=== PATIENT | female | born 1950 | race Caucasian/White ===

== ENCOUNTER 2018-05-03 00:17 | Inpatient (IN) | payer MEDICARE, MEDICAID ==
[~2018-05-03] VITALS: Ht 157.5 cm; Wt 81.1 kg
[~2018-05-03 00:17] MED LIST: ACAI BERRY500 MG PO; ADULT LOW DOSE81 MG PO; ATIVAN0.5 MG; DIFLUCAN150 MG PO; DOXYCYCLINE; GLUCOPHAGE; NORCO 5-325 TA1 EACH PO; NYSTATIN; NYSTATIN 100,0015 GM TP; OMEGA-31000 MG PO; PHENERGAN; PRINIVIL; ZANTAC; ZOFRAN4 MG PO
[2018-05-03 00:24] VITALS: BP 146/93
[2018-05-03] MEDS ORDERED: KLOR-CON 1010 MEQ PO (00:34)
[2018-05-03] MEDS ORDERED: DIURETIC (00:34)
[2018-05-03 01:02] LABS: ABSOLUTE BASOPHILS 0.1 thou/uL (0.0-0.2); ABSOLUTE EOSINOPHILS 0.1 thou/uL (0.0-0.7); ABSOLUTE LYMPHOCYTES 1.4 thou/uL (0.8-5.3); ABSOLUTE MONOCYTES 0.7 thou/uL (0.0-1.2); ABSOLUTE NEUTROPHILS 5.2 thou/uL (1.6-8.1); BASOPHILS 0.8 %; EOSINOPHILS 1.7 %; HEMATOCRIT 36.6 % (37.0-47.0); HEMOGLOBIN 11.7 gm/dL (12.0-15.0); LYMPHOCYTES 18.7 %; MCH 26.5 pg (26.0-34.0); MCHC 32.1 g/dL (28.0-37.0); MCV 82.6 fL (80.0-100.0); MONOCYTES 8.7 %; MPV 8.6 fl. (7.2-11.1); NUCLEATED RBCS 0 /100WBC; PLATELET COUNT* 224 thou/uL (150-400); POLYS 70.1 %; RBC 4.43 mil/uL (4.20-5.00); RDW-CV 17.4 % (10.5-14.5); WBC 7.5 thou/uL (4.0-11.0)
[2018-05-03 01:15] LABS: INR 1.1; PROTIME 11.2 Seconds (9.20-11.50)
[2018-05-03 01:47] LABS: URINE BILIRUBIN NEGATIVE (Negative); URINE BLOOD NEGATIVE (Negative); URINE CLARITY CLEAR; URINE COLOR YELLOW; URINE GLUCOSE-RANDOM NEGATIVE (Negative); URINE KETONES NEGATIVE (Negative); URINE LEUKOCYTES-REFLEX NEGATIVE (Negative); URINE NITRITE-REFLEX NEGATIVE (Negative); URINE PROTEIN NEGATIVE (Negative); URINE SPECIFIC GRAVITY <= 1.005 (1.005-1.030); URINE UROBILINOGEN 0.2 E.U./dl (0.2-1.0)
[2018-05-03 01:53] LABS: ANION GAP 9 mmol/L (7-16); BUN 11 mg/dL (7-18); CALCIUM 8.2 mg/dL (8.5-10.1); CHLORIDE 102 mmol/L (98-107); CO2 23 mmol/L (21-32); GLUCOSE 117 mg/dL (70-99); POTASSIUM 4.3 mmol/L (3.5-5.1); SODIUM 134 mmol/L (136-145)
[2018-05-03 02:04] LABS: ALBUMIN 3.2 g/dL (3.4-5.0); ALKALINE PHOSPHATASE 81 U/L (46-116); NT-PRO BRAIN NAT PEPTIDE 5982 pg/mL (<300); SGOT 17 U/L (15-37); SGPT 16 U/L (30-65); TOTAL BILIRUBIN 0.5 mg/dL (<0.1-1.0); TOTAL PROTEIN 7.3 g/dL (6.4-8.2); TROPONIN-I LEVEL <0.06 ng/mL (<0.06)
[2018-05-03 03:18] VITALS: BP 133/56
[2018-05-03 09:00] VITALS: BP 122/70
--- NOTE | 2018-05-03 10:57 | EKG ---
[place] [address] ELECTROCARDIOGRAM REPORT Name: VALERIA COMERYN Brayan Room: [address] ADM [place] .R.#: [id number] Admission: 05/03/18 Attend Phys: Geo Moseley MD Discharge: Date of : 50 Report #: [id number] THIS REPORT FOR: //name// [facility] ED Test Date: 2018-05-03 Test Time: 01:09:42 Pat Name: LEVON COMER Department: Room: [facility] Gender: F Rack Loader: MR : 1950 Requested By: Angela Butler Order Number: [id number] MD: Peter Cordoba Measurements Intervals [place] Rate: 103 P: 67 HI: 158 QRS: 22 QRSD: 105 T: 112 QT: 365 QTc: 478 Interpretive Statements Sinus tachycardia Probable left atrial enlargement LVH with secondary repolarization abnormality Anterior Q waves, possibly due to LVH Compared to ECG 02/13/2008 09:09:10 Left ventricular hypertrophy now present Sinus bradycardia no longer present Electronically Signed On 05-03-2018 10:56:58 CDT by Peter Cordoba [email or web address] <ELECTRONICALLY SIGNED> By: Peter Cordoba MD, [facility] 05/03/18 [phone] Peter Cordoba MD, [facility] /EPI
[2018-05-03 10:59] LABS: INFLUENZA A ANTIGEN None Detected (None Detect); INFLUENZA B ANTIGEN None Detected (None Detect)
[2018-05-03 11:46] VITALS: BP 128/59
--- NOTE | 2018-05-03 13:43 | NUR ---
Pt is A&O. Resides at home with her sister, stated that she has lived here for about 5 months. Pt reports being independent with ADLS. Pt stated that she had o2 at home, but stated that everything was sent back. Pt previously used [facility]. Pt stated that if she needs it at dc, it would need to be set up again because she doesn't have all of the supplies. Hx of HH, but does not remember the name of the agency. No hx of SNF. Pt has a cane that she uses for mobility. Goal is to return home. Following
[2018-05-03 15:20] VITALS: BP 125/68
--- NOTE | 2018-05-03 16:38 | NUR ---
PATIENT REMAINS ALERT AND ORIENTED. DENIES PAIN. O2 2L. NON PRODUCTIVE COUGH. URINE SENT FOR STREP LEGIONELLA. FLU SWAB NEGATIVE. AMBULATES WITH STANDBY ASSIST. IV SALINE LOCK RIGHT HAND. SOLUMEDROL GIVEN. BREATHING TREATMENTS PER RESPIRATORY. UP TO CHAIR THIS AFTERNOON. SCD'S FOR HS. FAMILY VISITED THIS AFTERNOON. CALL LIGHT WITHIN REACH. WILL CONTINUE TO MONITOR.
--- NOTE | 2018-05-03 16:47 | NUR ---
HOURLY ROUNDING COMPLETED
[2018-05-04] VITALS: BP 122/75
[2018-05-04 04:00] VITALS: BP 127/74
--- NOTE | 2018-05-04 04:54 | NUR ---
ASSUMED CARE OF PATIENT AT 1930. SHE COMPLAINED OF ANXIETY AND WAS PRESCRIBED ATIVAN. ANXIETY WAS RELIEVED SHORTLY AFTER. HOURLY ROUNDING WAS PROVIDED AND PATIENT APPEARD COMFORTABLE THROUGHOUT NIGHT. CALL LIGHT REMAINED WITHIN REACH.
[2018-05-04 05:42] LABS: HEMATOCRIT 32.8 % (37.0-47.0); HEMOGLOBIN 10.5 gm/dL (12.0-15.0); MCH 26.9 pg (26.0-34.0); MCHC 32.1 g/dL (28.0-37.0); MCV 83.6 fL (80.0-100.0); MPV 8.6 fl. (7.2-11.1); RBC 3.93 mil/uL (4.20-5.00); RDW-CV 17.3 % (10.5-14.5); WBC 9.8 thou/uL (4.0-11.0)
[2018-05-04 06:11] LABS: CALCIUM 8.6 mg/dL (8.5-10.1); CREATININE 1.2 mg/dL (0.6-1.3); MAGNESIUM 2.2 mg/dL (1.8-2.4); POTASSIUM 4.5 mmol/L (3.5-5.1)
--- NOTE | 2018-05-04 07:45 | NUR ---
ASSUMED CARE OF PT ASSESSED AND DOCUMENTED. PT IS A&O WITH NO C/O PAIN. PT IS ON CARDIAC MONITER TRACING SR HR 73. VSS WNL. PT IS AFEBRILE. PT HAS SOA ON EXHERTION AND WHEEZING NOTED IN ALL LOBES. SHE IS ON 2L OF O2. PT WAS HIGHLY AGITATED ABOUT HAVING A CT WITH CONTRAST STATEING IT ALMOST KILLED HER WHEN SHE HAD ONE BEFORE. SHE REFUSES TO HAVE THE CONTRAST. EDUCATION GIVEN. BED IN LOW POSITION CALL LIGHT IS IN REACH. WM.
[2018-05-04 08:00] VITALS: BP 128/87
[2018-05-04 12:00] VITALS: BP 131/62
--- NOTE | 2018-05-04 12:37 | NUR ---
CM provided Pt with PENITENTIARY options that accept [place] Medicaid, Pt stated that she does not want to turn over her income, so is not open to PENITENTIARY at this time. Sister in room, sister would like Pt to go to [facility]. Following.
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
[2018-05-04 16:00] VITALS: BP 133/61
--- NOTE | 2018-05-04 17:39 | NUR ---
PT HAS RESTED IN HER ROOM AND BEEN ON HER COMPUTER. SHE ASKED THAT NO ONE GO IN HER ROOM WITH OUT THE NURSE. PT IS ANXIOUS AND WANTS TO REFUSE CARE. PT NEEDS EXPLNATIONS BEFORE EACH TEST PROCEDURE AND HANDS ON CARE. SHE MAY STILL REFUSE. EDUCATION GIVEN ON DEMAND. HOURLY ROUNDING COMPLETE.
[2018-05-04 20:00] VITALS: BP 105/40
[2018-05-05] VITALS: BP 105/42
[2018-05-05 04:00] VITALS: BP 123/50
--- NOTE | 2018-05-05 04:52 | NUR ---
ASSUMED PT CARE AT 1930. NURSING ASSESSMENT COMPLETED AT START OF SHIFT. [employer] SOFTWARE CONSULTANT IN PLACE, TRACING SINUS RHYTH WITH PVCS. PT CALM AND COOPERATIVE THIS SHIFT. HOURLY ROUNDING COMPLETED. FALL PRECAUTIONS IN PLACE. CALL LIGHT WITHIN REACH.
[2018-05-05 05:02] LABS: HEMATOCRIT 32.3 % (37.0-47.0); HEMOGLOBIN 10.5 gm/dL (12.0-15.0); MCH 26.7 pg (26.0-34.0); MCHC 32.3 g/dL (28.0-37.0); MCV 82.5 fL (80.0-100.0); MPV 8.6 fl. (7.2-11.1); RBC 3.92 mil/uL (4.20-5.00); RDW-CV 17.3 % (10.5-14.5); WBC 12.6 thou/uL (4.0-11.0)
[2018-05-05 05:29] LABS: CALCIUM 9.3 mg/dL (8.5-10.1); CREATININE 1.1 mg/dL (0.6-1.3); MAGNESIUM 2.4 mg/dL (1.8-2.4); POTASSIUM 4.4 mmol/L (3.5-5.1)
[2018-05-05 07:38] VITALS: BP 127/54
[2018-05-05] MEDS ORDERED: CEFDINIR300 MG PO (09:44)
[2018-05-05] MEDS ORDERED: ZITHROMAX250 MG PO (09:44)
[2018-05-05] MEDS ORDERED: VENTOLIN HFA 1818 GM INH (09:44)
[2018-05-05] MEDS ORDERED: PREDNISONE 10 M10 MG PO (09:44)
--- NOTE | 2018-05-05 10:16 | NUR ---
SPOKE TO [facility] WITH [facility] TO INFORM OF THE REFERRAL FOR HH, AND FAXED PATIENT'S FACESHETT, H&P, AND D/C ORDERS. [facility] TO CONTACT PATIENT TO SETUP VISIT. CM WILL REMAIN AVIALABLE TO ASSIST AND FOLLOW NEEDED.
[2018-05-05 10:18] VITALS: BP 127/54
--- NOTE | 2018-05-05 11:42 | NUR ---
Ex ox ordered. Pt refusing to ambulate with RT, stating "my foot hurts." Pt is 92% at rest on RA, unsure of what she would be with activity, as she is refusing to ambulate. Pt discharging to home today. Sister in room and will transport home.
[2018-05-05 12:00] VITALS: BP 111/60
[2018-05-05 12:17] VITALS: BP 127/54
[2018-05-05] MEDS ORDERED: ALBUTEROL2.5 MG/31 INH (13:00)
--- NOTE | 2018-05-05 13:00 | NUR ---
PT WITH COMPLETE DC ORDER. REVIEWED DC INSTRUCTIONS AND MEDICATION LIST WITH PT/FAMILY, PRESENT AT BS. ANSWERED QUESTIONS TO PT/FAMILY SATISFACTION. SCRIPTS GIVEN. CONTACTED DR. CHAVEZ TO OBTAIN ORDER FOR ALBUTEROL BY NEBULIZER AT PT'S INSISTANCE. ORDER OBTAINED AND CALLED IN TO [facility]. IV AND TELE MONITOR DC'D. TELE MONITOR PLACED IN ROOM WALL POCKET. PT IN POSSESSION OF ALL PERSONAL BELONGINGS. PT TO BE TRANSPORTED HOME VIA CAR AND FAMILY MEMBERS DOCUMENTED.
== END 2018-05-05 13:54 | disposition home health service (06) | DRG 193 ==
LOC: M.ERS 00:17 → M.2W 02:09 → M.TBA-ER 02:09 → M.2W 03:05
PROVIDERS: Emergency Medicine; Internal Medicine; ADMIT Internal Medicine
DX: J15.9 Unspecified bacterial pneumonia (principal); J96.21 Acute and chronic respiratory failure with hypoxia; I50.32 Chronic diastolic (congestive) heart failure; R65.10 Systemic inflammatory response syndrome (SIRS) of non-infectious origin without acute organ dysfunction; J44.0 Chronic obstructive pulmonary disease with (acute) lower respiratory infection; J18.0 Bronchopneumonia, unspecified organism; I25.10 Atherosclerotic heart disease of native coronary artery without angina pectoris; Z86.73 Personal history of transient ischemic attack (TIA), and cerebral infarction without residual deficits; Z90.710 Acquired absence of both cervix and uterus; Z85.42 Personal history of malignant neoplasm of other parts of uterus; Z87.81 Personal history of (healed) traumatic fracture; Z88.6 Allergy status to analgesic agent; Z88.0 Allergy status to penicillin; Z88.2 Allergy status to sulfonamides; Z88.8 Allergy status to other drugs, medicaments and biological substances; Q07.00 Arnold-Chiari syndrome without spina bifida or hydrocephalus; Z82.49 Family history of ischemic heart disease and other diseases of the circulatory system; Z87.891 Personal history of nicotine dependence; Z79.82 Long term (current) use of aspirin; Z79.899 Other long term (current) drug therapy

== ENCOUNTER → 2018-08-25 | Outpatient (CLI) | payer MEDICARE, MEDICAID ==
[~2018-08-25] MED LIST changes: +ALBUTEROL2.5 MG/31 INH; +CEFDINIR300 MG PO; +DIURETIC; +KLOR-CON 1010 MEQ PO; +PREDNISONE 10 M10 MG PO; +VENTOLIN HFA 1818 GM INH; +ZITHROMAX250 MG PO
== END ==
LOC: M.RAD 15:42
DX: I51.7 Cardiomegaly (principal); J92.9 Pleural plaque without asbestos; J18.1 Lobar pneumonia, unspecified organism

== ENCOUNTER → 2018-09-13 | Outpatient (CLI) | payer MEDICARE, MEDICAID ==
--- NOTE | 2018-09-13 16:40 | 2DMMODE ---
[place] [address] 2 D/M-MODE ECHOCARDIOGRAM Name: LOREDialloLEVON J Room: [facility]#: [id number] Admission: 09/13/18 Attend Phys: Haseeb Gutierrez, Discharge: Date of : 50 Date of Service: 09/13/18 [facility] Report #: [id number] THIS REPORT FOR: //name// APPROVED REPORT Study performed: 09/13/2018 15:36:59 EXAM: Comprehensive 2D, Doppler, and color-flow Echocardiogram Patient Location: Out-Patient Status: routine BSA: 1.76 HR: 96 bpm Other Information Study Quality: Good Indications CAD 2D Dimensions IVSd: 10.02 (7-11mm) LVOT Diam: 19.47 (18-24mm) LVDd: 54.27 mm PWd: 10.16 (7-11mm) Ascending Ao: 25.85 (22-36mm) LVDs: 44.08 (25-40mm) Aortic Root: 26.42 mm Volumes Left Atrial Volume (Systole) LA ESV Index: 25.40 mL/m2 Aortic Valve AoV Peak Roverto.: 1.38 m/s AO Peak Gr.: 7.58 mmHg LVOT Max P.24 mmHg AO Mean Gr.: 4.08 mmHg LVOT Mean P.50 mmHg LVOT Max V: 0.56 m/s AO V2 VTI: 20.54 cm LVOT Mean V: 0.32 m/s JAYDEN (VTI): 1.14 cm2 LVOT V1 VTI: 7.86 cm Mitral Valve E/A Ratio: 1.71 MV Decel. Time: 149.18 ms MV E Max Roverto.: 1.20 m/s MV PHT: 43.26 ms MVA (PHT): 5.09 [place] [address] 2 D/M-MODE ECHOCARDIOGRAM Name: LEVON COMER Room: [facility]#: [id number] Admission: 09/13/18 Attend Phys: Haseeb Gutierrez, Discharge: Date of : 50 Date of Service: 09/13/18 1640 Report #: [id number] TDI E/Lateral E': 24.00 E/Medial E': 24.00 Medial E' Roverto.: 0.05 m/s Lateral E' Roverto.: 0.05 m/s Pulmonary Valve PV Peak Roverto.: 0.96 m/s PV Peak Gr.: 3.70 mmHg Tricuspid Valve RAP Estimate: 5.00 mmHg TR Peak Gr.: 43.49 mmHg RVSP: 48.49 mmHg PA Pressure: 48.49 mmHg Left Ventricle Left ventricle is mildly dilated. There is global hypokinesis of the left ventricle. There is normal left ventricular wall thickness. Left ventricular systolic function is severely decreased. LVEF is 20-25%. The left ventricular diastolic function is normal. Right Ventricle The right ventricle is normal size. The right ventricular systolic function is normal. Atria The left atrium size is normal. The right atrium size is normal. Aortic Valve The aortic valve is normal in structure. No aortic regurgitation is present. There is no aortic valvular stenosis. Mitral Valve The mitral valve is normal in structure. Moderate to severe mitral regurgitation No evidence of mitral valve stenosis. Tricuspid Valve The tricuspid valve is normal in structure. Moderate tricuspid regurgitation. estimated pa pressure 45 mm Hg Pulmonic Valve The pulmonary valve is normal in structure. There [place] [address] 2 D/M-MODE ECHOCARDIOGRAM Name: LEVON COMER Room: [facility]#: [id number] Admission: 09/13/18 Attend Phys: Haseeb Gutierrez, Discharge: Date of : 50 Date of Service: 09/13/18 [facility] Report #: [id number] regurgitation. Great Vessels The aortic root is normal in size. IVC is normal in size and collapses >50% with inspiration. Pericardium There is no pericardial effusion. <Conclusion> LVEF is 20-25%. There is global hypokinesis of the left ventricle. Moderate to severe mitral regurgitation Moderate tricuspid regurgitation. estimated pa pressure 45 mm Hg <ELECTRONICALLY SIGNED> By: Peter Cordoba MD, FACC 09/13/18 1640 1640 1640 Peter Cordoba MD, FACC /INF
== END ==
LOC: M.CRD 15:00
DX: I08.1 Rheumatic disorders of both mitral and tricuspid valves (principal); I25.10 Atherosclerotic heart disease of native coronary artery without angina pectoris

== ENCOUNTER → 2018-10-07 | Outpatient (CLI) | payer MEDICARE, MEDICAID ==
[~2018-10-07] MED LIST changes: +LEVAQUIN 750 M750 MG PO; +PREDNISONE50 MG PO
--- NOTE | 2018-10-07 15:35 | CARDNUC ---
[place] [address] CARDIAC NUCLEAR IMAGING REPORT Name: NAHOMILEVON GABE Room: [facility]#: [id number] Admission: 10/07/18 Attend Phys: Haseeb Gutierrez, Discharge: Date of : 50 Date of Service: 10/07/18 1535 Report #: [id number] THIS REPORT FOR: //name// APPROVED REPORT Imaging Protocol: Rest Tc-99m/Stress Tc-99m 1 day Study performed: 10/07/2018 08:15:00 Indication: ischemic cardiomyopathy Patient Location: Out-Patient Stress Tech: Shahida Morrison Stress Nurse: Sabra Begum RN NM Tech:TOMMY Pulido Ht: 5 ft 2 in Wt: 165 lbs BSA: 1.76 m2 BMI: 30.17 Medical History Medical History: cad, pvd, copd, chf, cva Medications: asa Allergies: ibuprofen, penicillin, morphine, statins Cardiac Risk Factors: age, pvd, family hx Exercise History: Sedentary Resting Data Rest SPECT myocardial perfusion imaging was performed in supine position 30 minutes following the intravenous injection of 11.2 mCi of Tc-99m Sestamibi. Time of rest injection: 849 Date: 10/07/2018 Time of rest imagin The images were gated to evaluate regional wall motion and calculate left ventricular ejection fraction. Administration Route: IV Administration Site: Right Hand Pharmacologic Stress Pharmacologic stress test was performed by injecting Regadenoson 0.4 mg IV push over 10-15 seconds immediately followed by the intravenous injection of 31.2 mCi of Tc-99m Sestamibi. Time of stress injection: 1010 Time of stress imagin Administration Route: IV Administration Site: Right Hand Gated Stress SPECT was performed 40 [place] [address] CARDIAC NUCLEAR IMAGING REPORT Name: LEVON COMER Room: [facility]#: [id number] Admission: 10/07/18 Attend Phys: Haseeb Gutierrez, Discharge: Date of : 50 Date of Service: 10/07/18 1535 Report #: [id number] The images were gated to evaluate regional wall motion and calculate left ventricular ejection fraction. Stress only was performed in the Supine position. Stress Test Details Stress Test: Pharmacologic stress testing performed using 0.4 mg of regadenoson per 5 mL given IV over 10 seconds. Reason for pharmacologic stress test: physical limitation. HR Max Heart Rate (APMHR): 153 bpm Resting HR: 98 bpm Target HR (85% APMHR): 130 bpm Max HR Achieved: 111 bpm % of APMHR: 72 Recovery HR: 110 bpm BP Resting BP: 126/84 mmHg Max BP: 138/87 mmHg Recovery BP: 120/86 mmHg ECG Resting ECG: Sinus Rhythm Stress ECG: Sinus Rhythm ST Change: None Arrhythmia: None Recovery ECG: Sinus Rhythm Recovery ST Change: None Recovery Arrhythmia: None Clinical Reason for Termination: Completed protocol The patient tolerated Lexiscan infusion without significant symptoms. Nurse Comments pt tolerated well Stress ECG Conclusion The baseline 12-lead EKG shows sinus rhythm without significant ST segment abnormality. EKGs obtained during and post Lexiscan infusion show sinus rhythm and sinus tachycardia with no significant ST segment changes when compared baseline. There were no stress-induced arrhythmias. Study Quality Study: Good Artifact: [place] [address] CARDIAC NUCLEAR IMAGING REPORT Name: LEVON COMER Room: [facility]#: [id number] Admission: 10/07/18 Attend Phys: Haseeb Gutierrez, Discharge: Date of : 50 Date of Service: 10/07/18 1535 Report #: [id number] Study Data At rest, the left ventricular ejection fraction was 14%.. Post stress, the left ventricular ejection was 15%.. TID = 0.97. The left ventricle is dilated. Perfusion There is a large in size severe intensity fixed defect involving the basal to apical inferior and inferolateral wall. There is a small in size moderate to severe intensity defect involving the distal anteroseptal wall. No reversible defects are identified. Wall Motion The left ventricle is dilated. There is severe global hypokinesis. There is akinesis of the septum. There is akinesis of the basal to mid inferior and inferolateral wall. Nuclear Conclusion ECG Findings: negative for ischemia Clinical Findings: negative for ischemia Nuclear Findings: negative for ischemia Exercise Capacity: not assessed Left Ventricular Function: abnormal Myocardial perfusion images show fixed defects consistent with prior infarct. There were no reversible defects to suggest ongoing ischemia. The left ventricle is dilated. Left ventricular systolic function is severely decreased. This is a high risk study based on severe left ventricular systolic dysfunction consistent with nonischemic cardiomyopathy. <Conclusion> The baseline 12-lead EKG shows sinus rhythm without significant ST segment abnormality. EKGs obtained during and post Lexiscan infusion show sinus rhythm and sinus tachycardia with no significant ST segment changes when compared baseline. There were no stress-induced arrhythmias. <ELECTRONICALLY SIGNED> By: Haseeb Gutierrez MD, FACC 10/07/18 1535 1535 1535 Haseeb Gutierrez MD, FACC /INF
== END ==
LOC: M.NUC 08:16
DX: I25.10 Atherosclerotic heart disease of native coronary artery without angina pectoris (principal); I25.5 Ischemic cardiomyopathy; I73.9 Peripheral vascular disease, unspecified; I50.9 Heart failure, unspecified; Z88.8 Allergy status to other drugs, medicaments and biological substances; Z88.0 Allergy status to penicillin; Z88.5 Allergy status to narcotic agent

== ENCOUNTER 2018-10-08 10:07 | Emergency (ER) | payer MEDICARE, MEDICAID ==
[~2018-10-08] VITALS: Ht 160 cm; Wt 71.2 kg
[~2018-10-08 10:07] MED LIST changes: -LEVAQUIN 750 M750 MG PO; -PREDNISONE50 MG PO
[2018-10-08 10:38] LABS: URINE BILIRUBIN NEGATIVE (Negative); URINE BLOOD NEGATIVE (Negative); URINE CLARITY CLEAR; URINE COLOR YELLOW; URINE GLUCOSE-RANDOM NEGATIVE (Negative); URINE KETONES NEGATIVE (Negative); URINE LEUKOCYTES-REFLEX NEGATIVE (Negative); URINE NITRITE-REFLEX NEGATIVE (Negative); URINE PROTEIN NEGATIVE (Negative); URINE UROBILINOGEN 0.2 E.U./dl (0.2-1.0)
[2018-10-08 10:57] LABS: ABSOLUTE EOSINOPHILS 0.1 thou/uL (0.0-0.7); ABSOLUTE MONOCYTES 0.5 thou/uL (0.0-1.2); ABSOLUTE NEUTROPHILS 3.9 thou/uL (1.6-8.1); BASOPHILS 0.6 %; EOSINOPHILS 1.3 %; HEMATOCRIT 36.1 % (37.0-47.0); HEMOGLOBIN 11.6 gm/dL (12.0-15.0); LYMPHOCYTES 18.6 %; MCH 26.8 pg (26.0-34.0); MCHC 32.3 g/dL (28.0-37.0); MCV 83.1 fL (80.0-100.0); MONOCYTES 9.4 %; MPV 8.5 fl. (7.2-11.1); NUCLEATED RBCS 0 /100WBC; PLATELET COUNT* 182 thou/uL (150-400); POLYS 70.1 %; RBC 4.34 mil/uL (4.20-5.00); RDW-CV 15.8 % (10.5-14.5); WBC 5.5 thou/uL (4.0-11.0)
[2018-10-08 11:00] LABS: INFLUENZA A ANTIGEN None Detected (None Detect); INFLUENZA B ANTIGEN None Detected (None Detect)
[2018-10-08 11:10] LABS: ALBUMIN 3.7 g/dL (3.4-5.0); CREATININE 1.3 mg/dL (0.6-1.3); POTASSIUM 4.4 mmol/L (3.5-5.1); TOTAL BILIRUBIN 0.8 mg/dL (<0.1-1.0); TOTAL PROTEIN 7.5 g/dL (6.4-8.2)
[2018-10-08] MEDS ORDERED: PREDNISONE50 MG PO (11:32)
[2018-10-08] MEDS ORDERED: LEVAQUIN 750 M750 MG PO (11:32)
[2018-10-08 12:04] VITALS: BP 141/83
--- NOTE | 2018-10-08 15:46 | EKG ---
[place] [address] ELECTROCARDIOGRAM REPORT Name: LEVON COMER Room: [facility]#: [id number] Admission: 10/08/18 Attend Phys: Discharge: 10/08/18 Date of : 50 Report #: [id number] THIS REPORT FOR: //name// [facility] ED Test Date: 2018-10-08 Test Time: 11:55:09 Pat Name: LEVON COMER Department: Room: Gender: F Unit Assembler: Brayan NAJERA : 1950 Requested By: Jose Luis Bower Order Number: [id number] MD: Peter Cordoba Measurements Intervals [place] Rate: 92 P: 73 AL: 159 QRS: 8 QRSD: 106 T: 107 QT: 392 QTc: 485 Interpretive Statements Sinus rhythm Left ventricular hypertrophy Nonspecific T abnormalities, lateral leads Compared to ECG 05/03/2018 01:09:42 Sinus tachycardia no longer present Electronically Signed On 10-08-2018 15:46:11 EDGE DYER by Peter Cordoba [email or web address] <ELECTRONICALLY SIGNED> By: Peter Cordoba MD, [facility] 10/08/18 1546 1155 1155 Peter Cordoba MD, [facility] /EPI
== END 2018-10-08 12:05 | disposition home or self-care (01) ==
LOC: M.ERS 10:07
PROVIDERS: Nurse Practitioner Family
DX: B34.9 Viral infection, unspecified (principal); R05 Cough; R11.2 Nausea with vomiting, unspecified; Z90.710 Acquired absence of both cervix and uterus; J44.9 Chronic obstructive pulmonary disease, unspecified; Z88.0 Allergy status to penicillin; Z88.2 Allergy status to sulfonamides; Z88.5 Allergy status to narcotic agent; Z88.6 Allergy status to analgesic agent; Z88.8 Allergy status to other drugs, medicaments and biological substances

== ENCOUNTER 2018-10-19 12:07 | Inpatient (IN) | payer MEDICARE, MEDICAID ==
[~2018-10-19] VITALS: Ht 162.6 cm; Wt 75.8 kg
[~2018-10-19 12:07] MED LIST changes: -DIURETIC; +LASIX 20 MG TAB20 MG PO; +LEVAQUIN 750 M750 MG PO; +PREDNISONE50 MG PO
[2018-10-19 12:19] VITALS: BP 125/84
[2018-10-19 12:57] LABS: HEMATOCRIT 34.2 % (37.0-47.0); HEMOGLOBIN 11.1 gm/dL (12.0-15.0); MCH 26.6 pg (26.0-34.0); MCHC 32.4 g/dL (28.0-37.0); MCV 81.9 fL (80.0-100.0); NUCLEATED RBCS 0 /100WBC; PLATELET COUNT* 179 thou/uL (150-400); RBC 4.18 mil/uL (4.20-5.00); RDW-CV 16.2 % (10.5-14.5); WBC 7.6 thou/uL (4.0-11.0)
[2018-10-19 13:01] LABS: INFLUENZA A ANTIGEN None Detected (None Detect)
[2018-10-19 13:06] LABS: APTT 29.4 Seconds (25.0-31.3); INR 1.1; PROTIME 11.5 Seconds (9.20-11.50)
[2018-10-19 13:13] LABS: CALCIUM 8.2 mg/dL (8.5-10.1); CREATININE 1.1 mg/dL (0.6-1.3); POTASSIUM 4.6 mmol/L (3.5-5.1); TROPONIN-I LEVEL 0.13 ng/mL (<0.06)
[2018-10-19 13:15] LABS: ALBUMIN 3.1 g/dL (3.4-5.0); TOTAL BILIRUBIN 1.1 mg/dL (<0.1-1.0); TOTAL PROTEIN 6.8 g/dL (6.4-8.2)
[2018-10-19 13:25] LABS: ABSOLUTE EOSINOPHILS 0.1 thou/uL (0.0-0.7); ABSOLUTE LYMPHOCYTES 0.9 thou/uL (0.8-5.3); ABSOLUTE MONOCYTES 0.7 thou/uL (0.0-1.2); ABSOLUTE NEUTROPHILS 5.9 thou/uL (1.6-8.1); PLATELET ESTIMATE ADEQUATE
[2018-10-19 13:26] LABS: ANISOCYTOSIS 1+; LARGE PLATELETS RARE; POIKILOCYTOSIS 1+
[2018-10-19 15:25] VITALS: BP 130/79
[2018-10-19 16:30] VITALS: BP 113/68
--- NOTE | 2018-10-19 16:51 | EKG ---
[place] [address] ELECTROCARDIOGRAM REPORT Name: LUCYLEVON ALBERTO GABE Room: [address] ADM [place] .R.#: [id number] Admission: 10/19/18 Attend Phys: Piter Alvarez MD Discharge: Date of : 50 Report #: [id number] THIS REPORT FOR: //name// [facility] Test Date: 2018-10-19 Test Time: 12:21:01 Pat Name: LEVON COMER Department: Room: [facility] Gender: F Residential Property Manager: HOLLY BAIG : 1950 Requested By: Leobardo Lugo Order Number: [id number] MD: Haseeb Gutierrez Measurements Intervals [place] Rate: 100 P: 56 AL: 135 QRS: 13 QRSD: 99 T: 121 QT: 351 QTc: 453 Interpretive Statements Sinus tachycardia Ventricular premature complex Probable left atrial enlargement LVH with secondary repolarization abnormality Artifact in lead(s) I,aVR,aVL,V3,V4,V5 Compared to ECG 10/08/2018 11:55:09 Ventricular premature complex(es) now present Early repolarization now present Sinus rhythm no longer present T-wave abnormality no longer present Electronically Signed On 10-19-2018 16:51:19 CDT by Haseeb Gutierrez [email or web address] <ELECTRONICALLY SIGNED> By: Haseeb Gutierrez MD, [facility] 10/19/18 1651 122 122 Haseeb Gutierrez MD, FAC /EPI
[2018-10-19] MEDS ORDERED: ATIVAN0.5 MG PO (16:52)
[2018-10-19 20:30] VITALS: BP 95/53
[2018-10-20] VITALS: BP 90/57
[2018-10-20 04:00] VITALS: BP 89/56
[2018-10-20 05:29] LABS: HEMATOCRIT 35.3 % (37.0-47.0); HEMOGLOBIN 11.3 gm/dL (12.0-15.0); MCH 26.7 pg (26.0-34.0); MCV 83.4 fL (80.0-100.0); MPV 9.2 fl. (7.2-11.1); RBC 4.23 mil/uL (4.20-5.00); RDW-CV 16.2 % (10.5-14.5); WBC 3.9 thou/uL (4.0-11.0)
[2018-10-20 06:00] LABS: CALCIUM 8.3 mg/dL (8.5-10.1); CREATININE 1.3 mg/dL (0.6-1.3); MAGNESIUM 2.5 mg/dL (1.8-2.4); POTASSIUM 3.7 mmol/L (3.5-5.1)
[2018-10-20 08:30] VITALS: BP 99/53
[2018-10-20 12:00] VITALS: BP 66/23; BP 92/41
[2018-10-20 16:00] VITALS: BP 98/65
[2018-10-20 19:30] VITALS: BP 109/67
[2018-10-21] VITALS: BP 104/50
[2018-10-21 04:00] VITALS: BP 95/58
[2018-10-21 04:51] LABS: HEMATOCRIT 33.3 % (37.0-47.0); HEMOGLOBIN 10.7 gm/dL (12.0-15.0); MCH 26.7 pg (26.0-34.0); MCHC 32.3 g/dL (28.0-37.0); MCV 82.7 fL (80.0-100.0); RBC 4.02 mil/uL (4.20-5.00); RDW-CV 16.1 % (10.5-14.5); WBC 10.6 thou/uL (4.0-11.0)
[2018-10-21 05:05] LABS: CALCIUM 8.2 mg/dL (8.5-10.1); CREATININE 1.2 mg/dL (0.6-1.3); MAGNESIUM 2.4 mg/dL (1.8-2.4); POTASSIUM 4.3 mmol/L (3.5-5.1)
[2018-10-21 08:00] VITALS: BP 110/65
[2018-10-21 11:24] VITALS: BP 106/61
[2018-10-21 16:10] VITALS: BP 115/68
--- NOTE | 2018-10-21 16:54 | CON ---
[address] [address] CONSULTATION Name: NAHOMILEVON BERNAL Room: [address] IN .R.#: [id number] Admission: 10/19/18 Attend Phys: Piter Alvarez MD Discharge: Date of : 50 Report #: [id number] THIS REPORT FOR: //name// CC: Jarad Alvarez DATE OF SERVICE: 10/19/2018 CARDIOLOGY CONSULTATION INDICATION: Acute exacerbation of chronic ischemic cardiomyopathy and heart failure. HISTORY OF PRESENT ILLNESS: The patient is a very pleasant 67-year-old white female who is well known to myself. She has a history of an ischemic cardiomyopathy with an ejection fraction approximately 20-25%. Recent stress test shows evidence of extensive regions of infarct, but no reversible defects to suggest ongoing ischemia. The patient was admitted to the hospital with increasing shortness of breath and dyspnea. She reports a 15 pound weight gain. She has orthopnea. She is not having chest pain. She has increased lower extremity swelling as well. PAST MEDICAL HISTORY: 1. Coronary artery disease. 2. Ischemic cardiomyopathy with ejection fraction of 20-25%. 3. Familial hyperlipidemia. 4. Essential hypertension. 5. History of CVA. 6. Chronic systolic heart failure. 7. COPD. 8. Current pneumonia/influenza. 9. Arnold-Chiari malformation. 10. Left foot fracture remotely. PAST SURGICAL HISTORY: 1. 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 2. Coronary artery bypass grafting, 3 vessels remotely. 3. Left compartment syndrome post bypass surgery, status post surgery for this. 4. Hysterectomy for uterine cancer remotely. ALLERGIES: CODEINE, IBUPROFEN, MORPHINE, PENICILLIN, STATINS, SULFA. HOME MEDICATIONS: Proventil inhaler q. 6 hours p.r.n., aspirin 81 mg daily, Lasix 20 mg p.o. daily, Ativan 0.5 mg q. 6 hours p.r.n. anxiety, potassium chloride 20 mEq [place] [address] CONSULTATION Name: NAHOMILEVON GABE Room: [address]#: [id number] Admission: 10/19/18 Attend Phys: Piter Alvarez MD Discharge: Date of : 50 Report #: [id number] FAMILY HISTORY: Positive for heart disease. SOCIAL HISTORY: The patient quit smoking many years ago. She does not drink alcohol. REVIEW OF SYSTEMS: Positive for cough, shortness of breath, orthopnea. Otherwise, unremarkable. PHYSICAL EXAMINATION: VITAL SIGNS: Blood pressure 130/79, pulse 94. GENERAL: This is a petite elderly female, in no distress. Mood and affect appropriate. HEENT: Extraocular muscles intact. Mucous membranes are moist. NECK: Shows jugular venous distention without carotid bruit. CHEST: Reveals diminished breath sounds with basilar rales. CARDIOVASCULAR: Reveals regular rhythm without gallop or murmur. ABDOMEN: Reveals protuberant abdomen, soft and nontender. EXTREMITIES: Shows 2+ edema to the mid thighs bilaterally. SKIN: Warm and dry. LABORATORY DATA: Reviewed. Sodium 136, potassium 4.6, chloride 104, bicarbonate 24, BUN 12, creatinine 1.1, serum glucose 105. LFTs within normal limits. Troponin 0.13 and 0.10. NT-proBNP 18,317. White blood cell count 7.6, hemoglobin 11.1, platelet count 179,000. Chest x-ray shows small bilateral pleural effusions and cardiomegaly. IMPRESSION AND RECOMMENDATIONS: 1. Acute on chronic systolic heart failure. The patient has been admitted for diuresis. 2. Ischemic cardiomyopathy with ejection fraction of 20-25%. Continue home medications. The patient is intolerant to many medications recommended for congestive heart failure. She has deferred treatment with beta blockers and LE inhibitors. 3. Hyperlipidemia. The patient is intolerant to STATIN AGENTS and has deferred any treatment for her hyperlipidemia. 4. Coronary artery disease, presently stable. She does not have any symptoms to suggest angina. Continue aspirin daily. <ELECTRONICALLY SIGNED> By: Haseeb Gutierrez MD, FACC 10/21/18 1654 1629 2044Micrafael Gutierrez MD, FACC /nt
[2018-10-21 19:25] VITALS: BP 102/65
[2018-10-22] VITALS: BP 110/59
[2018-10-22 04:00] VITALS: BP 97/60
[2018-10-22 05:05] LABS: CALCIUM 8.2 mg/dL (8.5-10.1); CREATININE 1.4 mg/dL (0.6-1.3)
[2018-10-22 09:30] VITALS: BP 92/50
[2018-10-22] MEDS ORDERED: TAMIFLU30 MG PO (11:33)
[2018-10-22] MEDS ORDERED: LASIX 20 MG TAB20 MG PO (11:33)
[2018-10-22 11:54] VITALS: BP 100/60
== END 2018-10-22 15:30 | disposition home health service (06) | DRG 871 ==
LOC: M.ERS 12:07 → M.2W 14:36 → M.TBA-ER 14:36 → M.2W 15:52
PROVIDERS: Family Medicine; Internal Medicine Cardiovascular Disease; ADMIT Internal Medicine
DX: A41.89 Other specified sepsis (principal); I50.23 Acute on chronic systolic (congestive) heart failure; J96.01 Acute respiratory failure with hypoxia; I13.0 Hypertensive heart and chronic kidney disease with heart failure and stage 1 through stage 4 chronic kidney disease, or unspecified chronic kidney disease; J44.0 Chronic obstructive pulmonary disease with (acute) lower respiratory infection; J44.1 Chronic obstructive pulmonary disease with (acute) exacerbation; J20.8 Acute bronchitis due to other specified organisms; I25.5 Ischemic cardiomyopathy; E78.5 Hyperlipidemia, unspecified; J11.1 Influenza due to unidentified influenza virus with other respiratory manifestations; I25.10 Atherosclerotic heart disease of native coronary artery without angina pectoris; N18.2 Chronic kidney disease, stage 2 (mild); Z79.82 Long term (current) use of aspirin; Z79.899 Other long term (current) drug therapy; Z88.5 Allergy status to narcotic agent; Z88.2 Allergy status to sulfonamides; Z88.6 Allergy status to analgesic agent; Z88.8 Allergy status to other drugs, medicaments and biological substances; Z88.0 Allergy status to penicillin; Z90.710 Acquired absence of both cervix and uterus; Z79.2 Long term (current) use of antibiotics; Z86.73 Personal history of transient ischemic attack (TIA), and cerebral infarction without residual deficits; Z95.1 Presence of aortocoronary bypass graft; Z82.49 Family history of ischemic heart disease and other diseases of the circulatory system; Z87.891 Personal history of nicotine dependence

== ENCOUNTER 2018-11-01 06:46 | Inpatient (IN) | payer MEDICARE, MEDICAID ==
[~2018-11-01] VITALS: Ht 160 cm; Wt 76.7 kg
[~2018-11-01 06:46] MED LIST changes: +ATIVAN0.5 MG PO; +TAMIFLU30 MG PO
[2018-11-01 06:47] VITALS: BP 147/89
[2018-11-01 07:14] LABS: HEMATOCRIT 36.3 % (37.0-47.0); HEMOGLOBIN 11.4 gm/dL (12.0-15.0); MCH 25.7 pg (26.0-34.0); MCHC 31.3 g/dL (28.0-37.0); MCV 82.2 fL (80.0-100.0); MPV 8.4 fl. (7.2-11.1); NUCLEATED RBCS 0 /100WBC; PLATELET COUNT* 316 thou/uL (150-400); RBC 4.42 mil/uL (4.20-5.00); RDW-CV 16.5 % (10.5-14.5); WBC 8.3 thou/uL (4.0-11.0)
[2018-11-01 07:25] LABS: INR 1.2
[2018-11-01 07:31] LABS: INFLUENZA A ANTIGEN None Detected (None Detect); INFLUENZA B ANTIGEN None DetectedA (None Detect)
[2018-11-01 07:33] LABS: ANION GAP 12 mmol/L (7-16); BUN 11 mg/dL (7-18); CALCIUM 8.4 mg/dL (8.5-10.1); CHLORIDE 100 mmol/L (98-107); CO2 23 mmol/L (21-32); CREATININE 1.4 mg/dL (0.6-1.3); GLUCOSE 130 mg/dL (70-99); SODIUM 135 mmol/L (136-145); TROPONIN-I LEVEL <0.06 ng/mL (<0.06)
[2018-11-01 07:35] LABS: ALBUMIN 3.2 g/dL (3.4-5.0); ALKALINE PHOSPHATASE 85 U/L (46-116); LIPASE 174 U/L (73-393); NT-PRO BRAIN NAT PEPTIDE 17235 pg/mL (<300); SGOT 27 U/L (15-37); SGPT 40 U/L (30-65); TOTAL BILIRUBIN 1.2 mg/dL (<0.1-1.0); TOTAL PROTEIN 7.3 g/dL (6.4-8.2)
[2018-11-01 08:20] LABS: ABSOLUTE LYMPHOCYTES 0.7 thou/uL (0.8-5.3); ABSOLUTE MONOCYTES 0.3 thou/uL (0.0-1.2); ABSOLUTE NEUTROPHILS 7.3 thou/uL (1.6-8.1); PLATELET ESTIMATE ADEQUATE
--- NOTE | 2018-11-01 10:04 | EKG ---
[place] [address] ELECTROCARDIOGRAM REPORT Name: LEVON COMER Room: [facility]9 ADM IN .R.#: [id number] Admission: 11/01/18 Attend Phys: Augusto Ash Discharge: Date of : 50 Report #: [id number] THIS REPORT FOR: //name// [facility] ED Test Date: 2018-11-01 Test Time: 07:06:08 Pat Name: LEVON COMER Department: Room: [facility] Gender: F Enrobing Machine Corder: WILL : 1950 Requested By: Leobardo Lugo Order Number: [id number] MD: Peter Cordoba Measurements Intervals [place] Rate: 126 P: 60 AL: 134 QRS: 11 QRSD: 107 T: 152 QT: 315 QTc: 457 Interpretive Statements Sinus tachycardia Probable left atrial enlargement LVH with secondary repolarization abnormality Anterior ST elevation, probably due to LVH Baseline wander in lead(s) V2 Compared to ECG 10/19/2018 12:21:01 Ventricular premature complex(es) no longer present Electronically Signed On 11-01-2018 10:04:41 CDT by Peter Cordoba [email or web address] <ELECTRONICALLY SIGNED> By: Peter Cordoba MD, FACC 11/01/18 1004 5 0706 Peter Cordoba MD, FAC /EPI
[2018-11-01 15:04] VITALS: BP 147/89
[2018-11-01 17:11] VITALS: BP 147/89
[2018-11-01 20:00] VITALS: BP 96/56; BP 98/58
[2018-11-01 23:08] LABS: URINE BILIRUBIN NEGATIVE (Negative); URINE BLOOD NEGATIVE (Negative); URINE CLARITY CLEAR; URINE COLOR YELLOW; URINE GLUCOSE-RANDOM NEGATIVE (Negative); URINE KETONES NEGATIVE (Negative); URINE LEUKOCYTES-REFLEX NEGATIVE (Negative); URINE NITRITE-REFLEX NEGATIVE (Negative); URINE PROTEIN NEGATIVE (Negative); URINE UROBILINOGEN 0.2 E.U./dl (0.2-1.0)
[2018-11-01 23:15] LABS: AMP/METHAMP Negative (Negative); BARBITURATES Negative (Negative); BENZODIAZEPINES Negative (Negative); COCAINE Negative (Negative); METHADONE Negative (Negative); OPIATES POSITIVE (Negative); PCP Negative (Negative); THC Negative (Negative)
[2018-11-02] VITALS (9 sets, daily range): BP systolic 92–140; BP diastolic 60–89
[2018-11-02 05:51] LABS: CREATININE 1.3 mg/dL (0.6-1.3); POTASSIUM 4.4 mmol/L (3.5-5.1)
[2018-11-02] MEDS ORDERED: LEVAQUIN 750 M750 MG PO (13:59)
--- NOTE | 2018-11-02 14:17 | CON ---
[facility] [address] [place] [address] CONSULTATION Name: NAHOMILEVON GABE Room: [address] IN .R.#: [id number] Admission: 11/01/18 Attend Phys: Augusto Ash Discharge: Date of : 50 Report #: [id number] THIS REPORT FOR: //name// CC: Jarad Cason DATE OF SERVICE: 11/01/2018 HISTORY OF PRESENT ILLNESS: The patient is a 68-year-old single white female who I was asked to see in the hospital today after she complained of nausea and vomiting. The history is obtained from the patient as well as some old records. The patient states that she had 5-vessel coronary artery bypass surgery in 1988 in the [facility]. She has been followed recently by my partner, Dr. Gutierrez. Of note is that she actually underwent an echocardiogram last month that showed ejection fraction of only 25% with moderate severe mitral regurgitation. Nuclear stress test last month, which showed a severe fixed defect involving the base of the inferior wall as well as the anteroseptal wall, but no reversible defects. This was consistent with fixed defect. There is severe left ventricular dysfunction. The patient just saw Dr. Gutierrez recently. She was actually just discharged a couple of weeks ago after an episode of bronchitis. She was brought to the Emergency Room today by ambulance complaining of fever, cough, sore throat, nausea and vomiting. Cardiology consultation is requested. She does have occasional chest pain, but no syncope. PAST MEDICAL HISTORY: She had previous back surgery. She has had previous surgery on the leg after compartment syndrome during her bypass surgery, vein graft harvesting. She has a history of hypertension, hyperlipidemia. She has also had a history of a brain surgery to repair Chiari malformation. She had a shunt placed for meningitis. She has had a previous stroke during her brain surgery, now has left hemiparesis. MEDICATIONS: Consist of nebulizer, aspirin. ALLERGIES: SHE HAS INTOLERANCE TO CODEINE, MORPHINE, PENICILLIN, SIMVASTATIN. SOCIAL HISTORY: She lives with a sister in [place], [place]. Quit smoking years ago. Occasionally drinks alcohol. REVIEW OF SYSTEMS: No history of asthma, peptic ulcer disease, liver disease, kidney disease. She had uterine cancer in the past. She has had a stroke. PHYSICAL EXAMINATION: GENERAL: Revealed an elderly frail appearing female, lying in bed. [place] [address] CONSULTATION Name: LEVON COMER Room: [address]#: [id number] Admission: 11/01/18 Attend Phys: Augusto Ash Discharge: Date of : 50 Report #: [id number] VITAL SIGNS: Blood pressure 140/80, pulse is 90, temperature is 100. HEENT: She is anicteric, conjunctivae pink. Mucous membranes appear dry. NECK: Veins do not appear distended. CHEST: Clear to auscultation. CARDIOVASCULAR: Regular rate and rhythm. ABDOMEN: Soft. EXTREMITIES: Had trace edema. SKIN: Cool and dry. NEUROLOGIC: Nonfocal. DIAGNOSTIC DATA: Her ECG showed sinus tachycardia, nonspecific T-wave changes. Her workup, she had a portable chest x-ray, showed cardiomegaly, mild pulmonary edema. LABORATORY DATA: Sodium 135, creatinine 1.4. Liver function studies were normal. Her troponin is 2.43. Her BNP is 70,235. TSH 1.2. White blood cell count 8.3, hemoglobin 11.4. IMPRESSION AND RECOMMENDATIONS: 1. Non-ST elevation myocardial infarction. Consider cardiac catheterization. 2. Cardiomyopathy. THE PATIENT HAS BEEN INTOLERANT OF BETA BLOCKERS AND LE INHIBITORS IN THE PAST. 3. Hyperlipidemia. THE PATIENT HAS BEEN INTOLERANT TO STATIN DRUGS. 4. Previous stroke. 5. History of uterine cancer. 6. Chronic back pain. The patient is not very active. <ELECTRONICALLY SIGNED> By: Peter Cordoba MD, FACC 11/02/18 1417 1650 [id number] Cordoba MD, FACC /nt
== END 2018-11-02 15:25 | disposition home or self-care (01) | DRG 177 ==
LOC: M.ERS 06:46 → M.TBA-ER 08:50 → M.2W 08:50 → M.TBA-ER 10:32 → M.2W 17:45
PROVIDERS: Family Medicine; Internal Medicine; Internal Medicine Cardiovascular Disease; ADMIT Internal Medicine
DX: J15.6 Pneumonia due to other Gram-negative bacteria (principal); I21.4 Non-ST elevation (NSTEMI) myocardial infarction; I50.43 Acute on chronic combined systolic (congestive) and diastolic (congestive) heart failure; I42.9 Cardiomyopathy, unspecified; I11.0 Hypertensive heart disease with heart failure; E78.5 Hyperlipidemia, unspecified; G89.29 Other chronic pain; M54.9 Dorsalgia, unspecified; J44.9 Chronic obstructive pulmonary disease, unspecified; R32 Unspecified urinary incontinence; F41.9 Anxiety disorder, unspecified; Z95.1 Presence of aortocoronary bypass graft; Z86.73 Personal history of transient ischemic attack (TIA), and cerebral infarction without residual deficits; Z98.2 Presence of cerebrospinal fluid drainage device; Z90.710 Acquired absence of both cervix and uterus; I25.2 Old myocardial infarction; Z85.42 Personal history of malignant neoplasm of other parts of uterus; Z87.891 Personal history of nicotine dependence; Z87.81 Personal history of (healed) traumatic fracture; Z79.82 Long term (current) use of aspirin; Z79.899 Other long term (current) drug therapy; Z88.5 Allergy status to narcotic agent; Z88.0 Allergy status to penicillin; Z88.2 Allergy status to sulfonamides; Z88.8 Allergy status to other drugs, medicaments and biological substances; Z82.49 Family history of ischemic heart disease and other diseases of the circulatory system

== ENCOUNTER 2018-11-04 06:34 | Inpatient (IN) | payer MEDICARE, MEDICAID ==
[~2018-11-04] VITALS: Ht 160 cm; Wt 78.0 kg
[2018-11-04 06:46] VITALS: BP 103/61
[2018-11-04 07:58] LABS: BE -3.7 mmol/L (-2 to +3); PCO2 31.3 mmHg (35.0-45.0); PO2 78.4 mmHg (75.0-100.0); pH 7.421 (7.340-7.450)
[2018-11-04 08:08] LABS: ABSOLUTE LYMPHOCYTES 0.9 thou/uL (0.8-5.3); ABSOLUTE MONOCYTES 0.7 thou/uL (0.0-1.2); ABSOLUTE NEUTROPHILS 3.4 thou/uL (1.6-8.1); BASOPHILS 0.4 %; EOSINOPHILS 0.1 %; HEMOGLOBIN 10.5 gm/dL (12.0-15.0); LYMPHOCYTES 18.5 %; MCH 25.8 pg (26.0-34.0); MCV 80.9 fL (80.0-100.0); MONOCYTES 13.5 %; MPV 8.8 fl. (7.2-11.1); NUCLEATED RBCS 0 /100WBC; PLATELET COUNT* 219 thou/uL (150-400); POLYS 67.5 %; RBC 4.08 mil/uL (4.20-5.00); RDW-CV 16.7 % (10.5-14.5)
--- NOTE | 2018-11-04 08:29 | NUR ---
PT LIVES WITH SISTER, SISTER STATES SHE WILL NOT BE TAKING PT HOME SHE CAN NO LONGER CARE FOR HER AND NEEDS A CONSULT WITH A COMMUNITY CENTER WORKER SO THAT SHE CAN BE PLACED IN A CORRECTION, PROVIDER AWARE
[2018-11-04 08:31] LABS: CALCIUM 8.2 mg/dL (8.5-10.1); CREATININE 1.2 mg/dL (0.6-1.3); POTASSIUM 4.5 mmol/L (3.5-5.1)
[2018-11-04 08:33] LABS: ALBUMIN 3.2 g/dL (3.4-5.0); TOTAL BILIRUBIN 0.8 mg/dL (<0.1-1.0); TOTAL PROTEIN 6.6 g/dL (6.4-8.2)
[2018-11-04 08:34] LABS: TROPONIN-I LEVEL 2.16 ng/mL (<0.06)
--- NOTE | 2018-11-04 08:38 | NUR ---
PT'S SISTER MAIKOL AYALADOLLY [phone]
[2018-11-04 09:15] LABS: URINE BILIRUBIN NEGATIVE (Negative); URINE BLOOD NEGATIVE (Negative); URINE CLARITY CLEAR; URINE COLOR YELLOW; URINE GLUCOSE-RANDOM NEGATIVE (Negative); URINE KETONES NEGATIVE (Negative); URINE LEUKOCYTES-REFLEX NEGATIVE (Negative); URINE NITRITE-REFLEX NEGATIVE (Negative); URINE PROTEIN NEGATIVE (Negative); URINE SPECIFIC GRAVITY <= 1.005 (1.005-1.030); URINE UROBILINOGEN 0.2 E.U./dl (0.2-1.0)
[2018-11-04 10:58] VITALS: BP 105/80
[2018-11-04 11:50] VITALS: BP 125/78
[2018-11-04 11:57] LABS: APTT 33.2 Seconds (25.0-31.3); INR 1.2; PROTIME 12.3 Seconds (9.20-11.50)
[2018-11-04 12:23] LABS: % SATURATION 9 % (20-39); IRON 28 ug/dL (50-175)
--- NOTE | 2018-11-04 13:11 | EKG ---
[place] [address] ELECTROCARDIOGRAM REPORT Name: LEVON COMER Room: [address] ADM IN .R.#: [id number] Admission: 11/04/18 Attend Phys: Piter Alvarez MD Discharge: Date of : 50 Report #: [id number] THIS REPORT FOR: //name// [facility] ED Test Date: 2018-11-04 Test Time: 06:43:39 Pat Name: LEVON COMER Department: Room: [facility] Gender: F Clinic Coordinator: MYNOR : 1950 Requested By: Eddie Ochoa Order Number: [id number] MD: Peter Cordoba Measurements Intervals [place] Rate: 103 P: 53 IL: 147 QRS: 7 QRSD: 132 T: 122 QT: 364 QTc: 477 Interpretive Statements Sinus tachycardia Ventricular premature complex Left atrial enlargement LVH with secondary repolarization abnormality Compared to ECG 11/01/2018 07:06:08 Ventricular premature complex(es) now present Electronically Signed On 11-04-2018 13:11:20 CDT by Peter Cordoba [email or web address] <ELECTRONICALLY SIGNED> By: Peter Cordoba MD, FAC 11/04/18 1311 0643 0643 Peter Cordoba MD, [facility] /EPI
--- NOTE | 2018-11-04 13:37 | EKG ---
[place] [address] ELECTROCARDIOGRAM REPORT Name: LUCYLEVON ALBERTO GABE Room: [address] ADM IN .R.#: [id number] Admission: 11/04/18 Attend Phys: Piter Alvarez MD Discharge: Date of : 50 Report #: [id number] THIS REPORT FOR: //name// [facility] ED Test Date: 2018-11-04 Test Time: 09:45:58 Pat Name: LEVON COMER Department: Room: [facility] Gender: F Auto Service Dispatcher: Brayan NAJERA : 1950 Requested By: Alondra Yang Order Number: [id number] MD: Donal Bowers Measurements Intervals [place] Rate: 90 P: 56 VT: 148 QRS: 13 QRSD: 93 T: 128 QT: 381 QTc: 467 Interpretive Statements Sinus rhythm Ventricular premature complex Left atrial enlargement Probable left ventricular hypertrophy Abnormal T, consider ischemia, lateral leads Compared to ECG 11/04/2018 06:43:39 T-wave abnormality now present Possible ischemia now present Sinus tachycardia no longer present Early repolarization no longer present Electronically Signed On 11-04-2018 13:37:01 CDT by Donal Bowers [email or web address] <ELECTRONICALLY SIGNED> By: Donal Bowers MD, [facility] 11/04/18 1337 0945 0945 Donal Bowers MD, [facility] /EPI
--- NOTE | 2018-11-04 14:56 | NUR ---
PT ADMITTED AROUND 1130 PT IS ALERT AND ORIENTED X 3-4 PT IS FORGETFUL, PT DENIES PAIN DENIES SOA ON 2L/NC, PT IS UP WITH ASSIST X 1 TO BEDSIDE COMMODE, PT LEFT SIDE PT CAN MOVE WILL STATE IS AFFECTED FROM STROKE HISTORY, WILL CONTINUE TO MONITOR
[2018-11-04 16:51] VITALS: BP 103/56; BP 113/72
[2018-11-04 16:54] VITALS: BP 113/72
[2018-11-04 20:00] VITALS: BP 120/66
[2018-11-05] VITALS: BP 104/66
[2018-11-05 02:10] LABS: GLYCOHEMOGLOBIN (HGB A1C) 6.1 % (4.8-5.6)
--- NOTE | 2018-11-05 02:45 | NUR ---
ASSUMED PT CARE @ 193. A+OX4. SMALL FORMED BROWN BM IN COMMODE. UP WITH 1 ASSIT, GIVEN NORCO FOR BACK PAIN AND ATIVAN FOR ANXIETY. PT WAS FINALLY ABLE TO FALL ASLEEP. PT REQUESTED NOT TO BE WOKEN UP FOR TURNS- AND DOES MOVE AROUND IN THE BED INDEPENDENTLY. CALL LIGHT IN REACH. HOURLY ROUNDS FOR SAFETY.
[2018-11-05 05:08] LABS: HEMATOCRIT 31.4 % (37.0-47.0); HEMOGLOBIN 10.3 gm/dL (12.0-15.0); MCH 26.4 pg (26.0-34.0); MCHC 32.8 g/dL (28.0-37.0); MCV 80.4 fL (80.0-100.0); MPV 8.6 fl. (7.2-11.1); RBC 3.91 mil/uL (4.20-5.00); RDW-CV 16.7 % (10.5-14.5); WBC 4.5 thou/uL (4.0-11.0)
[2018-11-05 05:35] LABS: CALCIUM 8.3 mg/dL (8.5-10.1); CREATININE 1.3 mg/dL (0.6-1.3); MAGNESIUM 2.2 mg/dL (1.8-2.4)
[2018-11-05 05:43] LABS: TROPONIN-I LEVEL 1.28 ng/mL (<0.06)
[2018-11-05 08:00] VITALS: BP 145/97
[2018-11-05 08:15] VITALS: BP 145/97
--- NOTE | 2018-11-05 10:02 | NUR ---
Pt recently hospitalized and just dc home earlier this week. Spoke with Pt and sister in room. Sister states that she is no longer able to care for Pt at home and wants Pt to be placed. CM discussed with Pt, Pt is in agreement. Hospice consult placed, CM discussed with Pt and Pt is in agreement with a hospice eval. Pt states that she would like to dc to [facility] to be faxed. CM contacted Elaina at [facility] to come and complete an info/admit visit. Following.
--- NOTE | 2018-11-05 11:00 | NUR ---
CERTIFIED PHARMACY TECHNICIAN INFORMED OF NEED TO SEND LTC REFERRAL TO [facility]. D/C WHEEL LOADER OPERATOR SPOKE TO ALEX WITH ADMISSIONS AT [facility] TO INFORM OF THE LTC REFERRAL AND FAXED THE PATIENT'S FACESHEET AND CLINICAL INFO. ALEX TO RETURN CALL TO INFORM OF THE [facility] TO ACCEPT THE PATIENT. CM WILL REMAIN AVIALABLE TO ASSIST AND FOLLOW NEEDED.
[2018-11-05 11:30] VITALS: BP 116/78
[2018-11-05 16:00] VITALS: BP 103/61
[2018-11-05 20:00] VITALS: BP 106/64
[2018-11-06] VITALS: BP 94/56
[2018-11-06 04:00] VITALS: BP 111/55
[2018-11-06 05:02] LABS: HEMATOCRIT 30.6 % (37.0-47.0); HEMOGLOBIN 9.8 gm/dL (12.0-15.0); MCHC 32.1 g/dL (28.0-37.0); MPV 8.9 fl. (7.2-11.1); NUCLEATED RBCS 0 /100WBC; PLATELET COUNT* 179 thou/uL (150-400); RBC 3.78 mil/uL (4.20-5.00); RDW-CV 16.6 % (10.5-14.5); WBC 4.4 thou/uL (4.0-11.0)
[2018-11-06 05:14] LABS: ALBUMIN 2.7 g/dL (3.4-5.0); CALCIUM 8.2 mg/dL (8.5-10.1); CREATININE 1.1 mg/dL (0.6-1.3); POTASSIUM 4.4 mmol/L (3.5-5.1); TOTAL BILIRUBIN 0.5 mg/dL (<0.1-1.0); TOTAL PROTEIN 6.2 g/dL (6.4-8.2)
--- NOTE | 2018-11-06 05:45 | NUR ---
ASSUMED CARE OF PT AFTER REPORT AT 1930. PT A&OX4. VSS. PHYSICAL ASSESSMENT COMPLETED AND CHARTED. PT ON O2 AT 2L WITH 92% O2 SAT. PT TRACING SR ON TELE. PT UP WITH 1 ASSIST TO BSC. PT COMPLAINED OF BACK PAIN- PAIN MEDS GIVEN PER MAR. PT RESTED WELL ON BED. CALL LIGHT WITHIN REACH.
[2018-11-06 06:01] LABS: TROPONIN-I LEVEL 1.28 ng/mL (<0.06)
[2018-11-06 08:00] VITALS: BP 104/62
[2018-11-06 08:38] LABS: ABSOLUTE LYMPHOCYTES 0.4 thou/uL (0.8-5.3); ABSOLUTE MONOCYTES 0.2 thou/uL (0.0-1.2); ABSOLUTE NEUTROPHILS 3.9 thou/uL (1.6-8.1); OVALOCYTES 1+; PLATELET ESTIMATE ADEQUATE
[2018-11-06 08:39] LABS: ANISOCYTOSIS Occasional
--- NOTE | 2018-11-06 10:59 | NUR ---
Reviewed chart and spoke with nurse. Pt is not medically ready for d/c today. Perhaps on Thursday.
[2018-11-06 12:04] VITALS: BP 99/67
[2018-11-06 16:00] VITALS: BP 89/48
[2018-11-06 20:00] VITALS: BP 100/64
[2018-11-07] VITALS: BP 96/57
[2018-11-07 04:00] VITALS: BP 97/63
[2018-11-07 04:36] LABS: ABSOLUTE LYMPHOCYTES 0.3 thou/uL (0.8-5.3); ABSOLUTE MONOCYTES 0.6 thou/uL (0.0-1.2); ABSOLUTE NEUTROPHILS 9.4 thou/uL (1.6-8.1); BASOPHILS 0.1 %; HEMATOCRIT 30.7 % (37.0-47.0); HEMOGLOBIN 9.9 gm/dL (12.0-15.0); LYMPHOCYTES 2.6 %; MCH 25.9 pg (26.0-34.0); MCHC 32.1 g/dL (28.0-37.0); MCV 80.6 fL (80.0-100.0); MONOCYTES 5.8 %; MPV 8.9 fl. (7.2-11.1); NUCLEATED RBCS 0 /100WBC; PLATELET COUNT* 197 thou/uL (150-400); POLYS 91.5 %; RBC 3.81 mil/uL (4.20-5.00); RDW-CV 16.8 % (10.5-14.5); WBC 10.3 thou/uL (4.0-11.0)
[2018-11-07 04:53] LABS: ALBUMIN 2.8 g/dL (3.4-5.0); CALCIUM 8.4 mg/dL (8.5-10.1); CREATININE 1.3 mg/dL (0.6-1.3); MAGNESIUM 2.1 mg/dL (1.8-2.4); POTASSIUM 4.6 mmol/L (3.5-5.1); TOTAL BILIRUBIN 0.4 mg/dL (<0.1-1.0); TOTAL PROTEIN 6.4 g/dL (6.4-8.2)
--- NOTE | 2018-11-07 05:39 | NUR ---
ASSUMED CARE OF PT AFTER REPORT AT 1930. PT A&OX4. VSS. PHSYICLA ASSESSMENT COMPLETED AND CHARTED. PT ON O2 AT 2L NC WITH 95% O2 SAT. PT TRACING SR ON TELE. PT UP WITH 1 ASSIST TO BSC. PT COMPLAINED OF NAUSEA & ABDOMINAL PAIN- MEDS GIVEN PER OCT. CALL LIGHT WITHIN REACH.
[2018-11-07 08:00] VITALS: BP 103/60
[2018-11-07 16:23] VITALS: BP 119/67
--- NOTE | 2018-11-07 18:33 | NUR ---
ASSUMED PT CARE REPORT RECEIVED FROM NURSE.PT IS AOX4 SR ON SAND CUTTER OPERATOR. SAND CUTTER OPERATOR DC'D THIS AM. PT UP WITH ASSIST Q2TURN. HAD 3 LOOSE BOWEL MVNT TODAY. COMPLAINS OF PAIN IN LOWER BACK. MEDICATIONS GIVEN WELL HEATING PAD APPLIED. CALL LIGHT AT REACH. LUNG SOUND COARSE AND WHEEZY HOSPITALIST AWARE. NO LASIX ORDERED. BREATHING TREATMENT GIVEN ORDERED
--- NOTE | 2018-11-07 18:55 | NUR ---
5 loose stool for the shift. notified for cdiff testing
[2018-11-07 20:00] VITALS: BP 107/64
[2018-11-08 04:00] VITALS: BP 123/80
--- NOTE | 2018-11-08 05:48 | NUR ---
ASSUMED CARE OF PT AFTER REPORT AT 1930. PT A&OX4. FORGETFUL AT TIMES. VSS. PHSYICAL ASSESSMENT COMPLETED AND CHARTED. PT ON O2 AT 2L NC WITH 95% O2 SAT. PT ON MEDSURG STATUS. PT UP WITH 1 ASSIT TO BEDSIDE COMMODES. PT HAD SEVERAL EPISODES OF DIARRHEA THROUGHTOUT THE NIGHT. DR GUZMAN MADE AWARE. C. DIFF PREACUTION IN PLACE. STOOL SPECIMEN SENT TO LAB. PT COMPLAINED OF BACK PAIN- PAIN MEDS GIVEN PER OCT. CALL LIGHT WITHIN REACH.
[2018-11-08 08:00] VITALS: BP 109/75
--- NOTE | 2018-11-08 10:16 | NUR ---
OFFICE MACHINE SERVICER APPRENTICE SPOKE TO ALEX WITH ADMISSIONS AT [facility] AND SHE INFORMS THAT THE FACILITY IS ABLE TO ACCEPT THE PATIENT TODAY. CM TO RETURN CALL TO INFORM ALEX OF TRANSPORT AND IF PATIENT WILL D/C TODAY. CM WILL REMAIN AVIALABLE TO ASSIST AND FOLLOW NEEDED.
[2018-11-08] MEDS ORDERED: ACIDOPHILUS1 EAC4 PO (10:53)
[2018-11-08] MEDS ORDERED: IPRAT-ALBUT 0.5-3 ML INH (10:53)
[2018-11-08] MEDS ORDERED: CEFDINIR300 MG PO (10:53)
[2018-11-08] MEDS ORDERED: MUCINEX600 MG PO (10:53)
[2018-11-08] MEDS ORDERED: HYDROCODONE-AP1 EAC6 PO (10:53)
[2018-11-08] MEDS ORDERED: PULMICORT0.5 MG/2 M INH (10:53)
[2018-11-08] MEDS ORDERED: PREDNISONE 20 M20 MG PO (10:53)
[2018-11-08] MEDS ORDERED: ATIVAN0.5 MG PO (10:53)
[2018-11-08] MEDS ORDERED: MELATONIN5 M1 PO (10:53)
--- NOTE | 2018-11-08 13:01 | NUR ---
PER PATIENT REQUEST, SHE WILL BE DISCONTINUED FROM PHYSICAL THERAPY. GENARO FERNANDEZ, MPT
--- NOTE | 2018-11-08 14:13 | CON ---
[address] [address] CONSULTATION Name: LEVON COMER Room: [address] IN .R.#: [id number] Admission: 11/04/18 Attend Phys: Piter Alvarez MD Discharge: Date of : 50 Report #: [id number] THIS REPORT FOR: //name// CC: Jarad Gutierrez DATE OF SERVICE: 11/05/2018 REQUESTING PHYSICIAN: Dr. Alvarez. HISTORY OF PRESENT ILLNESS: This is a 68-year-old female with past medical history as mentioned below. The patient does have a history of COPD. The patient also does have a history of congestive heart failure with a markedly reduced left ventricular ejection fraction to 20% to 25%. The patient has had several recent admissions to this hospital and has had influenza recently; it was influenza type B. The patient does have a long-standing history of left lower lobe infiltrates, for which he was recommended bronchoscopy in the past. The patient had, however, declined the same. The patient was now admitted again yesterday; presentation was with increasing shortness of breath. The patient is also reported to have a generalized weakness and nausea. She has vomited at least once today. The patient has had limited compliance to therapy, and in fact, has been refusing medications even in the hospital here. She was scheduled for a CT earlier today, which she refused and at this time, provided only a limited history. REVIEW OF SYSTEMS: The patient answered to the negative for 12 questions for review of systems, except as mentioned above. However, the patient's ability to answer questions for review of systems appears to be limited at this time. PAST MEDICAL HISTORY: COPD, I do not have previous PFTs available; coronary artery disease with congestive heart failure, left ventricular ejection fraction on the last available echocardiogram is 20% to 25% from last year. The patient also has opokrikq-cc-[id number] mitral regurgitation. The pulmonary artery systolic pressure on this echo was 45. 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 SOCIAL HISTORY: She was a smoker. She was smoking 1 pack a day as of last year. She had started smoking at the age of 12. It is not completely clear to me as to whether the patient has been smoking during the last year or not. ALLERGIES: PENICILLIN AND IBUPROFEN WELL SIMVASTATIN [place] [address] CONSULTATION Name: LORELEVON Landrum Room: [address] IN M.R.#: [id number] Admission: 11/04/18 Attend Phys: Piter Alvarez MD Discharge: Date of : 50 Report #: [id number] ANTIBIOTICS ARE MENTIONED ALLERGIES. The patient has previous documentation of being administered cephalosporins without reaction. MEDICATIONS: Current medication list in [facility] reviewed. Home medication list also in [facility] reviewed. FAMILY HISTORY: Coronary artery disease. PHYSICAL EXAMINATION: GENERAL: She is anxious. She is alert, awake and oriented. She, however, appears to have limited insight into her condition and says that she will not leave her room for any type of testing. She, however, is agreeable to testing as indicated, while she is in the room. VITAL SIGNS: She has a pulse of 121 and a blood pressure 116/78. She is saturating 96%, she is on 2 liters nasal cannula. Respiratory rate is highly variable from 16-28. She is afebrile, with a temperature of 36.6. HEENT: She does have rattling mucus in her throat. Head is normocephalic. There is no throat erythema. NECK: Does not show a raised JVP. CHEST: Breath sounds bilaterally equal, decreased expirations, prolonged wheezes bilaterally. HEART: Regular, tachycardia noted. ABDOMEN: Soft and nontender. EXTREMITIES: Lower extremities, trace to 1+ edema. No calf tenderness. DIAGNOSTIC DATA: The patient did have a chest x-ray performed yesterday, which again shows left lower lobe infiltrates. There may be mild increase in pulmonary vascular congestion present as well. LABORATORY DATA: The patient's lab work is in [facility] and this was also reviewed. Arterial blood gases also in [facility], reviewed. ASSESSMENT AND PLAN: 1. Acute respiratory insufficiency. Primarily, the patient appears to have bronchospasm at this time. Certainly thromboembolism also needs to be ruled out. She does have infiltrates in the left lower lobe. Most of these, however, appear to be old. There may be a component of acute pneumonia/acute bacterial bronchitis as well considering significant rattling mucus in the throat. The patient appears to be only mildly fluid overloaded at this time. 2. Chronic obstructive pulmonary disease exacerbation. We will continue with Solu-Medrol as currently prescribed. The patient also remains on nebulized bronchodilators and I will continue the same as well. 3. Left lower lobe infiltrates/acute bronchitis. She has recently been on Levaquin. Certainly we can continue Levaquin. However, since she has had mental status changes, I decided to switch this over to cefepime. Cultures have already been ordered by the primary service. [address] [address] CONSULTATION Name: LEVON COMER Room: [address] ADM IN M.R.#: [id number] Admission: 11/04/18 Attend Phys: Piter Alvarez MD Discharge: Date of : 50 Report #: [id number] 4. Chronic systolic congestive heart failure with mitral regurgitation. She appears to be only mildly fluid overloaded at this time. Certainly, this does appear to be contributing to her respiratory failure as well. Considering mild elevation in creatinine, for now, I did not order additional Lasix. She is on daily p.o. Lasix 5. Edema/evaluation for thromboembolic phenomenon. There was a CT chest ordered by the primary service. The patient declined at this time. At least, we will do venous Dopplers. In case she does agree to a CTA chest, then administration of some IV fluids and holding Lasix to avoid contrast injury with latter. Diuresis will be a possible consideration. The patient is not agreeable to a CT chest at this time. 6. Suspected obstructive sleep apnea versus central sleep apnea, evaluation deferred at this time. She will be an appropriate candidate for a sleep study down the line should she be agreeable. 7. High aspiration risk. Recommend aspiration precautions. 8. Recent influenza B. Thanks for this consultation. <ELECTRONICALLY SIGNED> By: Antonia Spivey MD 11/08/18 1413 1235 [id number] Shannon MD /candace
--- NOTE | 2018-11-08 15:22 | NUR ---
PT DISCHARGE ORDER RECEIVED. DISCHARGE TO [facility] PLANNED. IV LINE OUT,AWAITING FROM [facility].
--- NOTE | 2018-11-08 15:24 | NUR ---
c diff result negative .
--- NOTE | 2018-11-08 16:21 | NUR ---
Pt discharged to [facility] today with [facility]. Facility picked up at 3pm. DC orders faxed. Nurse report number is [phone]. Updated Pt's sister
--- NOTE | 2018-11-08 16:48 | NUR ---
pt left 1 pair of shoes in her room. sister batool was called and made aware so she could steel pickler.sister says she will steel pickler shoes later. report given to [facility] about pt
== END 2018-11-08 15:30 | DRG 193 ==
LOC: M.ERS 06:34 → M.2W 09:45 → M.TBA-ER 09:45 → M.2W 10:50
PROVIDERS: Emergency Medicine Emergency Medical Services; Internal Medicine Critical Care Medicine; Personal Emergency Response Attendant; ADMIT Internal Medicine
DX: J18.0 Bronchopneumonia, unspecified organism (principal); R65.11 Systemic inflammatory response syndrome (SIRS) of non-infectious origin with acute organ dysfunction; J96.90 Respiratory failure, unspecified, unspecified whether with hypoxia or hypercapnia; I50.23 Acute on chronic systolic (congestive) heart failure; R53.2 Functional quadriplegia; J44.1 Chronic obstructive pulmonary disease with (acute) exacerbation; J44.0 Chronic obstructive pulmonary disease with (acute) lower respiratory infection; E87.2 Acidosis; Z66 Do not resuscitate; J20.9 Acute bronchitis, unspecified; N18.2 Chronic kidney disease, stage 2 (mild); E66.9 Obesity, unspecified; F41.1 Generalized anxiety disorder; R73.03 Prediabetes; K58.0 Irritable bowel syndrome with diarrhea; I34.0 Nonrheumatic mitral (valve) insufficiency; I25.10 Atherosclerotic heart disease of native coronary artery without angina pectoris; I25.2 Old myocardial infarction; Z95.1 Presence of aortocoronary bypass graft; Z68.30 Body mass index [BMI] 30.0-30.9, adult; Z86.73 Personal history of transient ischemic attack (TIA), and cerebral infarction without residual deficits; Z87.81 Personal history of (healed) traumatic fracture; Z85.42 Personal history of malignant neoplasm of other parts of uterus; Z90.710 Acquired absence of both cervix and uterus; Z79.82 Long term (current) use of aspirin; Z79.899 Other long term (current) drug therapy; Z88.5 Allergy status to narcotic agent; Z88.0 Allergy status to penicillin; Z88.2 Allergy status to sulfonamides; Z88.8 Allergy status to other drugs, medicaments and biological substances; Z82.49 Family history of ischemic heart disease and other diseases of the circulatory system